=== PATIENT | female | born 2000 | race Caucasian/White ===

== ENCOUNTER 2023-06-17 19:26 | Observation (INO) | payer OTHER, SELFPAY ==
[2023-06-17] VITALS (14 sets, daily range): BP systolic 102–136; BP diastolic 48–81; PULSE 82–109; RESP 17–18; TEMP 36.4; O2SAT 96–100
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
[2023-06-18 03:07] VITALS: BMI 33.5
--- NOTE | 2023-06-18 03:07 | OBADM ---
This patient, Pat Gomes, admitted to the OB room OB Post [facility] for observation. Patient/family oriented to hospital policies and general routines including ID bracelet, bed and alarms, visiting hours, pain management, procedures, bathroom and other care routines, personal items, smoking policy, room service/diet, and visiting hours. Patient/Family are encouraged to report perceived risks to care and to ask questions if they do not understand what they are told or what they should do.
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
== END 2023-06-18 03:25 | disposition home or self-care (01) ==
LOC: ANHED 22:01 → ANHOBPP 22:50
PROVIDERS: Admitting Provider Student in an Organized Health Care Education/Training Program; Emergency Provider Physician Assistant; Visit Provider Student in an Organized Health Care Education/Training Program
DX: Z04.1 Encounter for examination and observation following transport accident (principal)
CPT/HCPCS: 99285; G0378